=== PATIENT | female | born 1990 | race Caucasian/White ===

== ENCOUNTER 2017-09-13 16:36 | Emergency (ER) | payer OTHER ==
[~2017-09-13] VITALS: Ht 160 cm; Wt 60.3 kg
[2017-09-13 16:54] VITALS: BP 126/73; Ht 160 cm; Wt 60.3 kg
[2017-09-13 17:24] LABS: BASOPHIL % 0.3 % (0-2); PLATELET COUNT 253 x10^3mcL (130-400); RED CELL DISTRIBUTION WIDTH 13.5 % (11.5-14.5)
[2017-09-13 17:31] LABS: CALCIUM 9.2 mg/dL (8.5-10.1); CARBON DIOXIDE 27.8 mmol/L (21-32); CHLORIDE SERUM 104 mmol/L (98-107); CREATININE SERUM 0.9 mg/dL (0.6-1.0); GFR1 > 60 mL/min; GLUCOSE SERUM 103 mg/dL (74-106); POTASSIUM SERUM 3.7 mmol/L (3.5-5.1); SODIUM SERUM 141 mmol/L (136-145)
[2017-09-13 17:44] LABS: ALBUMIN 4.4 g/dL (3.4-5.0); ALKALINE PHOSPHATASE 48 U/L (46-116); ALT/SGPT 17 U/L (14-59); AST/SGOT 18 U/L (15-37); BILIRUBIN TOTAL 0.7 mg/dL (0.20-1.00); TOTAL PROTEIN, SERUM 7.6 g/dL (6.4-8.2)
== END 2017-09-13 19:30 | disposition home or self-care (01) ==
LOC: ED 16:36
PROVIDERS: Emergency Medicine
DX: G89.29 Other chronic pain (principal); M54.5 Low back pain; Z88.5 Allergy status to narcotic agent
CPT/HCPCS: 36415; 72072; J1885